=== PATIENT | female | born 1995 | race Caucasian/White ===

== ENCOUNTER → 2023-08-14 07:16 | Outpatient (REF) | payer BC, SELFPAY | LOC: HWRAD 07:16 | PROVIDERS: ATTENDING PHYSICIAN Physician Assistant | DX: K82.4 Cholesterolosis of gallbladder (principal); R10.13 Epigastric pain | CPT/HCPCS: 76700 ==

== ENCOUNTER → 2023-09-02 07:27 | Outpatient (REF) | payer BC, SELFPAY | LOC: HWRAD 07:27 | PROVIDERS: FAMILY PHYSICIAN Family Medicine | DX: R22.41 Localized swelling, mass and lump, right lower limb (principal); R22.1 Localized swelling, mass and lump, neck | CPT/HCPCS: 76536; 76882 ==

== ENCOUNTER 2024-06-05 22:04 | Emergency (ER) | payer BC, SELFPAY ==
[2024-06-05 22:06] VITALS: BP 141/83
[2024-06-05 22:37] VITALS: BMI 22.6
[2024-06-05 22:45] VITALS: BP 132/84
--- NOTE | 2024-06-05 22:45 | ED.GENMED ---
History of Present Illness
General
Chief Complaint: Medication Reaction
Source: patient
Exam Limitations: none
Time Seen by Provider: 06/05/24 22:36
History of Present Illness
History of Present Illness:
See MDM
Past History
Past History
ED Past Medical History: HTN
ED Past Surgical History: None
Social History
Tobacco: Non-smoker
Alcohol: None
Drug: None
Living: with family
Phy Exam
Physical Exam
Physical Exam:
See MDM
Course
Orders/Labs/Results
Orders:
Orders
06/05/24 22:56
Complete Blood Count/With Diff Urgent
Comprehensive Metabolic Panel Urgent
Abnormal Lab Results
06/05/24
22:56
Absolute Monos (auto) 0.9 H 10^3/uL
(0.1-0.6)
Monocytes % 9.6 H %
(1.7-9.3)
BUN 24 H mg/dl
(7-17)
Glucose 143 H mg/dl
(70-99)
Calcium 10.7 H mg/dl
(8.4-10.2)
Albumin 5.2 H g/dl
(3.5-5.0)
06/05/24 22:56
06/05/24 22:56
Vital Signs
Initial and Last Documented VS:
Initial Vital Signs
Temp Pulse Resp BP Pulse Ox
97.9 F 161 20 141/83 100
06/05/24 22:06 06/05/24 22:06 06/05/24 22:06 06/05/24 22:06 06/05/24 22:06
Last Documented Vital Signs
Temp Pulse Resp BP Pulse Ox
97.9 F 107 20 121/85 100
06/05/24 22:06 06/05/24 23:48 06/05/24 22:06 06/06/24 01:03 06/05/24 23:48
MDM/Problems Addressed
Differential Diagnosis Includes:
HPI and MDM Narrative:
29-year-old female presenting for evaluation of itching and generalized erythema. This occurred around 9 AM soon after eating a coffee dessert. Earlier in the day, patient had ice tea. She does acknowledge that she is extremely sensitive to
caffeine. She usually tries to avoid it but did not recognize that the desert was likely caffeinated. Patient was unsure if this is related to a side effect of nifedipine. Patient is 5 weeks. She was induced at 37 weeks due to
hypertension. Patient was placed on nifedipine and tolerated well. She was recently increased from 30 mg to 60 mg several weeks ago due to persistent hypertension.
On exam, patient is mildly anxious and she has mild erythema to extremities and face. She is mildly tachycardic. Given , will obtain blood work to rule out preeclampsia. Since that she has been tolerating nifedipine for several weeks
and the fact that her last dose was 12 hours ago, doubt nifedipine allergic reaction. It is very coincidental that her symptoms occurred soon after eating this caffeinated dessert
An attempt to decrease her sympathetic drive, I did offer IV Benadryl. Patient declined as she is unsure if she has had adverse effects of Benadryl the past. She does acknowledge that she is very sensitive to most medications
Physical exam
General: Well appearing and non-toxic
HEENT: protecting airway. Posterior pharynx clear
Neck: appears supple
CV: No evidence of cyanosis. Tachycardic
Resp: No accessory muscle use
Abd: Non-distended
Extremities: No deformities
Neuro: alert
Psych: Mildly anxious
Skin: Erythema noted to extremities and base
Problems Addressed including Acute and Chronic Conditions affecting care:
1. Hypersympathetic drive
Acuity: acute
Prognosis: stable
Details: Appears to be related to adverse effect of caffeine. Will obtain blood work to rule out any preeclamptic issues
Updates
Blood work without evidence of preeclampsia. Patient feeling better after prolonged observation. Discussed going back to 30 mg nifedipine tomorrow. She has cardiology follow-up Friday
Differential Diagnosis (but not limited to): Preeclampsia, hypersympathetic dress
Testing considered: Urinalysis
Drug therapy (if applicable): OTC meds, please see d/c instruction regarding Rx drugs
Amount and/or Complexity of Data Reviewed
Clinical info obtained from: Patient
External data reviewed: N/A
Labs I independently reviewed (but not limited to): Mild BUN elevation
Radiology: N/A
Pulse Ox: not hypoxic
EKG independently reviewed: N/A
Field Manager: N/A
Critical Care: N/A
Risk of Complication:
Social Determinants of health: Good social support
Discussed with other providers: N/A
Escalation of Care includes Admit/Obs: After being observed in the Emergency Department, pt stable for discharge.
Occasional wrong word or 'sound a like' substitutions may have occurred due to the inherent limitations of voice recognition software. Read the chart carefully and recognize, using context, where substitutions have occurred.
*Critical Care Note
Total Time (30-74mins, 75-104mins- exclusive of procedures): Not Applicable
ED Attending Note
-
Portions of this chart may have been created with voice recognition software.� Occasional wrong word or��sound alike� substitutions may have occurred due to the inherent limitations of voice recognition software.
Discharge Plan
Departure
Patient Disposition: Home (Routine Discharge)
Date of Disposition: 06/06/24
Time of Disposition: 01:27
Patient with high blood pressure during this ER visit?: No
Discharge Problem:
Adverse effects of medication
Prescriptions:
No Action
capsule
1 pill PO 1XD
acetaminophen 325 mg Tablet
650 mg PO Q4HPRN PRN (Reason: mild pain) Qty: 0 0RF
nifedipine 30 mg Tablet Extended Release
30 mg PO BID Qty: 60 1RF
ibuprofen 600 mg Tablet
600 mg PO Q6HPRN PRN (Reason: moderate pain/cramps) Qty: 0 0RF
Referrals:
Scot Willis, DO [Family Provider] -
Activity Restrictions/Additional Instructions:
Your symptoms could be related to nifedipine. Please go back down to 30 mg tomorrow and talk to your speech and hearing director on Friday.
Interventions
Interventions:
*Risk Screen - Suicide Last Done: 06/05/24 22:06
*General Assessment Last Done: 06/05/24 22:37
*Neglect/Abuse Screening Last Done: 06/05/24 22:37
*ED- Fall Risk Assessment Last Done: 06/05/24 22:37
*ED COVID-19 Vaccine History Last Done: 06/05/24 22:37
ED-Skin Assessment Last Done: 06/05/24 22:37
ED- Pulmonary Assessment Last Done: 06/05/24 22:37
ED-EENT Assessment Last Done: 06/05/24 22:50
Discharge Date and Time
Print Language: CENTRAL AFRICAN
[2024-06-05 23:00] VITALS: BP 129/85
[2024-06-05 23:10] LABS: % Basophils 0.5 % (0-2); % Eosinophils 1.3 % (0-6); % Immature Granulocytes 0.3 % (0-0.5); % Lymphocytes 34.4 % (20.5-51.1); % Monocytes 9.6 % (1.7-9.3); % Neutrophils 53.9 % (42.2-75.2); Absolute Basophils 0.1 10^3/uL (0-0.2); Absolute Eosinophils 0.1 10^3/uL (0-0.7); Absolute Lymphocytes 3.3 10^3/uL (1.2-3.4); Absolute Monocytes 0.9 10^3/uL (0.1-0.6); Absolute Neutrophils 5.2 10^3/uL (1.4-6.5); Hematocrit 44.1 % (37.0-47.0); Hemoglobin 15.1 g/dL (12.0-16.0); Mean Corp Hgb Conc. 34.2 g/dL (33.0-37.0); Mean Corpuscular Hgb 30.4 pg (27.0-31.0); Mean Corpuscular Volume 88.9 fL (81.0-99.0); Mean Platelet Volume 9.9 fL (7.4-10.4); Nucleated Red Blood Cells % 0 %; Platelet Count 315 10^3/uL (130-400); Red Blood Cell Count 4.96 10^6/uL (4.20-5.40); Red Cell Dist. Width 11.8 % (11.5-14.5); White Blood Cell Count 9.6 10^3/uL (4.8-10.8)
[2024-06-05 23:27] LABS: ALT (SGPT) 25 U/L (0-35); AST (SGOT) 24 U/L (14-36); Albumin 5.2 g/dl (3.5-5.0); Alkaline Phosphatase 91 U/L (38-126); Blood Urea Nitrogen 24 mg/dl (7-17); Calcium 10.7 mg/dl (8.4-10.2); Carbon Dioxide 24 mmol/L (22-30); Chloride 105 mmol/L (98-107); Estimated Creatinine Clearance 86 ml/min; Glucose 143 mg/dl (70-99); Sodium 141 mmol/L (135-145); Total Bilirubin 0.9 mg/dl (0.2-1.3); Total Protein 8.2 g/dl (6.3-8.2); eGFR > 60.00
[2024-06-06] VITALS: BP 117/73
[2024-06-06 01:03] VITALS: BP 121/85
== END 2024-06-06 02:03 | disposition home or self-care (01) ==
LOC: EMR 22:04
PROVIDERS: EMERGENCY PHYSICIAN Student in an Organized Health Care Education/Training Program; FAMILY PHYSICIAN Family Medicine
DX: L29.9 Pruritus, unspecified (principal); L53.9 Erythematous condition, unspecified; T45.0X5A Adverse effect of antiallergic and antiemetic drugs, initial encounter; Y92.9 Unspecified place or not applicable; I10 Essential (primary) hypertension
CPT/HCPCS: 99283; 80053; 85025